=== PATIENT | male | born 1975 | race Caucasian/White ===

== ENCOUNTER → 2016-10-27 | Day surgery (SDC) | payer OTHER ==
[~2016-10-27] MED LIST: BUPIVACAINE HCL 0.5 % INJ/PF 30 ML SDV ONE; METHYLPREDNISOLONE ACETATE INJ 40 MG/1 ML ML ONE
== END ==
LOC: RAD 15:08
PROVIDERS: ATTEND Orthopaedic Surgery Sports Medicine
PROC: 3E0U33Z Introduction of Anti-inflammatory into Joints, Percutaneous Approach (ICD-10-PCS; principal; 2016-10-27)
DX: M25.552 Pain in left hip (principal); M16.12 Unilateral primary osteoarthritis, left hip
CPT/HCPCS: 73501; 20610; 77002; J1020

== ENCOUNTER → 2016-11-24 | Day surgery (SDC) | payer OTHER | LOC: RAD 13:14 | PROVIDERS: ATTEND Orthopaedic Surgery Sports Medicine | PROC: BQ01ZZZ Plain Radiography of Left Hip (ICD-10-PCS; principal; 2016-11-24) | DX: M25.552 Pain in left hip (principal) | CPT/HCPCS: 73722; 73525; 77002; A9576 ==